=== PATIENT | female | born 1990 | race Caucasian/White ===

== ENCOUNTER 2017-01-04 15:40 | Emergency (ER) | payer SELFPAY ==
[~2017-01-04] VITALS: Ht 157.5 cm; Wt 68.5 kg
[~2017-01-04 15:40] MED LIST: AZITHROMYCIN250 MG ORAL
[2017-01-04] MEDS ORDERED: NKM (15:53)
[2017-01-04 16:00] VITALS: BP 124/85
[2017-01-04] MEDS ORDERED: IBUPROFEN600 MG ORAL (16:58)
[2017-01-04 17:00] VITALS: BP 124/85
--- NOTE | 2017-01-04 22:10 | Emergency Room Report ---
History of Present Illness General Chief Complaint: Upper Extremity Injury Source: Patient Present Illness HPI The patient is a 26-year-old female presenting with left shoulder pain. She states that the pain began one week prior after tripping and falling. She denies hitting head or loss of consciousness at that time. Pain has continued and is now a 7/10 dull ache. Worse with touch of the shoulder and movement. She denies any radiating pain or numbness and tingling. She denies previous injury to that shoulder. She denies any other pain or symptoms Allergies: Coded Allergies: PENICILLINS (Unverified Allergy, Unknown, 04/08/14) Patient History Pertinent Family History: none Last Menstrual Period: 12/16/16 Now: No Reviewed Nursing Documentation: PMH: Agreed, PSxH: Agreed Nursing Documentation-PMH Past Medical History: No Stated History Review of Systems All Other Systems: negative except mentioned in HPI Physical Exam Vital Signs Date Time Temp Pulse Resp B/P (MAP) Pulse Ox O2 Delivery O2 Flow Rate FiO2 01/04/17 15:50 97.5 65 16 124/85 100 Room Air Sp02 EP Interpretation: reviewed, normal General Appearance: no apparent distress, alert, GCS 15, non-toxic Head: normocephalic, atraumatic Eyes: bilateral eye normal inspection, bilateral eye PERRL ENT: hearing grossly normal, normal pharynx, no angioedema, normal voice Musculoskeletal: normal inspection, normal range of motion, tender - TTP over the L anterior shoulder Neurologic: alert, oriented x3, responsive, motor strength/tone normal, sensory intact, speech normal Psychiatric: judgement/insight normal, memory normal, mood/affect normal, no suicidal/homicidal ideation Skin: normal color, no rash, warm/dry, well hydrated Procedures Splinting Splinting : Consent: Verbal Location: L arm Pre-Made Type: sling Pre-Proc Neuro Vasc Exam: normal Post-Proc Neuro Vasc Exam: normal Patient Tolerated: Well Complications: None Medical Decision Making PA Attestation Dr. Andrea is my supervising physician. Patient management was discussed with my supervising physician Diagnostic Impression: Primary Impression: Contusion of shoulder, left Qualified Codes: S40.012A - Contusion of left shoulder, initial encounter ER Course The patient is a 26-year-old female presenting with left shoulder pain Ddx considered include but not limited to sprain/strain, fracture, contusion Physical exam: Left shoulder is tenderness to palpation over the anterior deltoid. Full active range of motion. No deformity. No tenderness over the clavicle. X-ray of the left shoulder is unremarkable Thumb placed in a sling. Patient given Motrin and will be discharged home. ER precautions are given Other X-Ray Diagnostic Results Other X-Ray Diagnostic Results : X-Ray ordered: L shoulder # of Views/Limited Vs Complete: 3 View Indication: Pain EP Interpretation: Yes Interpretation: no dislocation, no soft tissue swelling, no fractures Impression: No acute disease Interpreting ER Provider: Eris Andrea MD PA Scribe Text I am acting as scribe for my supervising physician. My supervising physician's interpretation of the L shoulder xrays are there are no fractures, dislocations or soft tissue swelling. Last Vital Signs Date Time Temp Pulse Resp B/P (MAP) Pulse Ox O2 Delivery O2 Flow Rate FiO2 01/04/17 17:00 97.5 16 124/85 100 Room Air 01/04/17 15:50 65 Status: improved Disposition: HOME, SELF-CARE Condition: Improved Scripts Ibuprofen* (MOTRIN*) 600 Mg Tablet 600 MG ORAL Q8H Y for For Pain, #30 TAB 0 Refills Prov: JIM LEE 01/04/17 Patient Instructions: Contusion Additional Instructions: I discussed my findings with the patient. All questions and concerns have been answered. Treatment and medication compliance have been addressed. I advised the patient that they need to follow up with PMD in 3-5 days. Return to ED if pain remains or worsens, numbness or tingling occurs, new rash is noticed, fever is noticed, or if needed for any reason. Patient verbalized understanding of discharge instructions. JIM LEE Jan 04, 2017 22:10
--- NOTE | 2017-01-05 11:25 | Diagnostic Imaging Report ---
Indication: Pain Findings: 3 views of the left shoulder were obtained. Alignment of the left shoulder is normal. No acute fracture is identified. Soft tissues are unremarkable. Impression: Negative left shoulder examination
== END 2017-01-04 17:00 | disposition home or self-care (01) ==
LOC: EMR 16:25
DX: S40.012A Contusion of left shoulder, initial encounter (principal); Z88.0 Allergy status to penicillin; W01.0XXA Fall on same level from slipping, tripping and stumbling without subsequent striking against object, initial encounter; Y92.9 Unspecified place or not applicable
CPT/HCPCS: 99283